=== PATIENT | female | born 1995 | race Caucasian/White ===

== ENCOUNTER 2018-07-17 20:56 | Emergency (ER) | payer MEDICAID ==
[2018-07-17] MEDS ORDERED: NS 1,000 ML IV ONE (21:14)
--- NOTE | 2018-07-17 21:14 | EDPHY ---
H & P Stated Complaint: sharp vaginal pain with nausea Time Seen by Provider: 07/17/18 21:10 HPI/ROS: HPI: This is a 23-year-old female who presents with Chief Complaint: Suprapubic and left lower quadrant pain Location: Suprapubic and left lower quadrant Quality: Sharp pain Duration: Started early this morning Signs and Symptoms: no fever, no nausea, no vomiting, no hematemesis, no blood in stool, no abdominal bloating, no diarrhea, no back pain, no urinary symptoms , no vaginal discharge, no indigestion, no chest pain, no shortness of breath Timing: Acute, constant Severity: Moderate Context: Patient is , 6 months , presents with complaints of sudden onset this morning around 3:30 a.m. Of suprapubic and left lower quadrant pain that was nonradiating in nature. Pain was sharp and intense. It woke her up from her sleep. Patient then reports approximately 1-2 hours later she started her menses. She is changing her tampon approximately every 4 hr. She is not breast-feeding. Does not take any control pills. She has a history of ovarian cyst. She recently moved from [facility] to the [facility] and does not have a primary care provider. She is eating and drinking without difficulty. She ate 3 meals today. Had a bowel movement today. Patient is and monogamous. No concern for STDs. Modifying Factors: She has tried no [id number] medications for pain Comment: ROS: A comprehensive 10 system review of systems is otherwise negative aside from elements mentioned in the history of present illness. MEDICAL/SURGICAL/SOCIAL HISTORY: Medical history: Generally healthy. Does not take any regular medications. Surgical history: Femur and clavicle surgery Social history: Nonsmoker. with 2 children. Family history noncontributory. CONSTITUTIONAL: Extremely polite and cooperative nontoxic-appearing young adult white female, overweight, awake and alert, no obvious distress HEENT: Atraumatic and normocephalic, PERRL, EOMI. Nares patent; no rhinorrhea; no nasal mucosal edema. Tympanic membranes clear. Oropharynx clear, no exudate and moist pink mucosa. Airway patent. No lymphadenopathy. No meningismus. Cardiovascular: Normal S1/S2, regular rate, regular rhythm, without murmur rub or gallop. PULMONARY/CHEST: Symmetrical and nontender. Clear to auscultation bilaterally. Good air movement. No accessory muscle usage. ABDOMEN: Soft, obesely rounded, nondistended, mild suprapubic and left lower quadrant tenderness, no rebound, no guarding, no peritoneal signs, no masses or organomegaly. No CVAT. EXTREMITIES: 2/2 pulses, strength 5/5, no deformities, no clubbing, no cyanosis or edema. NEUROLOGICAL: no focal neuro deficits. GCS 15. SKIN: Warm and dry, no erythema. no rash. Good capillary refill. Source: Patient Exam Limitations: No limitations - Personal History LMP (Females 10-55): Now Current Tetanus/Diphtheria Vaccine: Yes Current Tetanus Diphtheria and Acellular Pertussis (TDAP): Yes - Medical/Surgical History Hx Asthma: No Hx Chronic Respiratory Disease: No Hx Diabetes: No Hx Cardiac Disease: No Hx Renal Disease: No Hx Cirrhosis: No Hx Alcoholism: No Hx HIV/AIDS: No Hx Splenectomy or Spleen Trauma: No Other PMH: femur and clavicle surgery - Social History Smoking Status: Never smoked Constitutional: Initial Vital Signs Temperature (C) 37.0 C 07/17/18 20:57 Heart Rate 90 07/17/18 20:57 Respiratory Rate 16 07/17/18 20:57 Blood Pressure 119/70 07/17/18 20:57 O2 Sat (%) 96 07/17/18 20:57 O2 Delivery Mode Room Air Allergies/Adverse Reactions: No Known Allergies Allergy (Unverified 07/17/18 21:00) Home Medications: Medication Instructions Recorded NK [No Known Home Meds] 07/17/18 Medical Decision Making - Diagnostics Imaging Results: Imaging Impressions Pelvic/Renal Ultrasound 07/17/18 21:14 Impression: 1. Uterus didelphys. 2. There is a simple-appearing 2.5 cm right ovarian cyst, with no evidence of torsion or free fluid. Findings were discussed with Emani Estrella PA-C at 22:28, on 07/17/2018. . ED Course/Re-evaluation: Vital signs reviewed and stable upon arrival. No systemic signs. Patient given 1 L normal saline and IV Toradol Labs, urinalysis, pelvic ultrasound ordered. Suspect ovarian cyst rupture. 2148: Labs reviewed. No signs of leukocytosis/anemia/platelet dysfunction/CHING/ electrolyte imbalance. 5: Called by Dr. Rich who advised that pelvic ultrasound shows Uterus didelphys. 2. There is a simple-appearing 2.5 cm right ovarian cyst, with no evidence of torsion or free fluid. 2248: Reassessed patient who reports relief of symptoms. Patient will be referred to primary care provider and OBGYN. This patient was seen under the supervision of my secondary supervising physician. I evaluated care for this patient independently. Discussed this patient with Dr. Antonio. Differential Diagnosis: Abdominal pain in a female including but not limited to ovarian cyst, pelvic inflammatory disease, ovarian torsion, urinary tract infection, and appendicitis. - Data Points Laboratory Results: Laboratory Results 07/17/18 21:20 07/17/18 21:20 07/17/18 07/17/18 07/17/18 21:20 21:20 21:20 WBC 13.68 10^3/uL H 10^3/uL (3.80-9.50) RBC 4.72 10^6/uL 10^6/uL (4.18-5.33) Hgb 14.0 g/dL g/dL (12.6-16.3) Hct 40.1 % % (38.0-47.0) MCV 85.0 fL fL (81.5-99.8) MCH 29.7 pg pg (27.9-34.1) MCHC 34.9 g/dL g/dL (32.4-36.7) RDW 13.0 % % (11.5-15.2) Plt Count 281 10^3/uL 10^3/uL (150-400) MPV 10.2 fL fL (8.7-11.7) Neut % (Auto) 59.9 % % (39.3-74.2) Lymph % (Auto) 29.2 % % (15.0-45.0) [place] % (Auto) 6.7 % % (4.5-13.0) Eos % (Auto) 3.3 % % (0.6-7.6) Baso % (Auto) 0.6 % % (0.3-1.7) Nucleat RBC Rel Count 0.0 % % (0.0-0.2) Absolute Neuts (auto) 8.19 10^3/uL H 10^3/uL (1.70-6.50) Absolute Lymphs (auto) 4.00 10^3/uL H 10^3/uL (1.00-3.00) Absolute Monos (auto) 0.92 10^3/uL H 10^3/uL (0.30-0.80) Absolute Eos (auto) 0.45 10^3/uL H 10^3/uL (0.03-0.40) Absolute Basos (auto) 0.08 10^3/uL 10^3/uL (0.02-0.10) Absolute Nucleated RBC 0.00 10^3/uL 10^3/uL (0-0.01) Immature Gran % 0.3 % % (0.0-1.1) Immature Gran # 0.04 10^3/uL 10^3/uL (0.00-0.10) Sodium 139 mEq/L mEq/L (135-145) Potassium 4.1 mEq/L mEq/L (3.3-5.0) Chloride 105 mEq/L mEq/L (97-110) Carbon Dioxide 25 mEq/l mEq/l (22-31) Anion Gap 9 mEq/L mEq/L (8-16) BUN 15 mg/dL mg/dL (7-23) Creatinine 0.7 mg/dL mg/dL (0.6-1.0) Estimated GFR > 60 Glucose 88 mg/dL mg/dL (70-100) Calcium 9.7 mg/dL mg/dL (8.5-10.4) Beta HCG, Qual NEGATIVE Medications Given: Discontinued Medications Sodium Chloride (Ns) 1,000 mls @ 0 mls/hr IV ONCE ONE; Wide Open PRN Reason: Protocol Stop: 07/17/18 21:15 Last Admin: 07/17/18 21:44 Dose: 1,000 mls Ketorolac Tromethamine (Toradol) 30 mg IVP EDNOW ONE Stop: 07/17/18 21:16 Last Admin: 07/17/18 21:45 Dose: 30 mg Departure - Departure Disposition: Home, Routine, Self-Care Clinical Impression: Dysmenorrhea, Uterus didelphus Ovarian cyst Qualifiers: Laterality: right Qualified Code(s): N83.201 - Unspecified ovarian cyst, right side Condition: Good Instructions: Dysmenorrhea (ED), Ovarian Cyst (ED), Ruptured Ovarian Cyst (ED) Additional Instructions: Use a heating pad on your lower abdomen as needed for menstrual cramps. Consume a minimum of 8-10 glasses of water or electrolyte fluid replacement drinks that include Gatorade, Powerade, Pedialyte. Eat a bland diet for the next 48 hours and then slowly advance as tolerated. Follow up with [facility] in 1-2 weeks to discuss menstrual cramps and ovarian cyst treatment options including oral contraceptive versus IUD. Take Tylenol 650 mg every 4 hours and/or Ibuprofen 600 mg every 8 hours with food as needed for pain. Take Flexeril every 8 hr as needed for muscle cramps. Referrals: [facility],. [Clinic] - As per Instructions
[2018-07-17] MEDS ORDERED: KETOROLAC 30 MG/1 ML SDV IVP ONE (21:15)
[2018-07-17 21:33] LABS: PLATELET COUNT 281 10^3/uL (150-400)
[2018-07-17] MEDS ORDERED: CYCLOBENZAPRINE 10MG PREPACK#3 BTL TAKEHOME ONE (22:49)
[2018-07-17 23:08] VITALS: BP 96/55
== END 2018-07-17 23:08 | disposition home or self-care (01) ==
DX: N94.6 Dysmenorrhea, unspecified (principal); N83.201 Unspecified ovarian cyst, right side; Q51.2 Other doubling of uterus
CPT/HCPCS: 96374; J1885

== ENCOUNTER 2018-08-28 11:44 | Emergency (ER) | payer MEDICAID ==
--- NOTE | 2018-08-28 12:03 | EDPHY ---
General Time Seen by Provider: 08/28/18 11:58 Narrative: CHIEF COMPLAINT: , vaginal bleeding HISTORY OF PRESENT ILLNESS: Patient presents by private vehicle with her spouse with complaints of vaginal bleeding and . Patient reports positive , 1st trimester with a last menstrual. I have approximately July 12. She states that earlier today as she noted some blood on her toilet paper after using the restroom. She has had no pain, abdominal or pelvic. She had 1 episode of the bleeding with no further bleeding. She is not wearing a pad. She has no lightheaded is, dizziness or chest pain. She is with 1 spontaneous miscarriage. She has no complaints of pain anywhere at this time. She reports a negative blood type. She has received RhoGAM in the past. No other associated complaints or modifying factors. REVIEW OF SYSTEMS: 10 systems were reviewed and negative with the exception of the elements mentioned in the history of present illness. PCP: None SPECIALISTS: Dr. Ruiz, obstetrics PAST MEDICAL HISTORY: Denies any ongoing diagnoses. Previous orthopedic injuries and appendicitis. PAST SURGICAL HISTORY: Appendectomy 1st week of July this year. Previous clavicle femur pairs. SOCIAL HISTORY: Never smoker. Lives independently with her spouse. FAMILY HISTORY: Noncontributory EXAMINATION: Vitals: Triage VS reviewed General Appearance: Alert, no distress. Well appearing. Nontoxic. Head: normocephalic, atraumatic Eyes: Pupils equal and round, no conjunctival pallor or injection ENT, Mouth: Mucous membranes moist Respiratory: Lungs are clear to auscultation Cardiovascular: Regular rate and rhythm Gastrointestinal: Abdomen is soft and nontender. No tympany rigidity. No guarding. No CVA tenderness. Skin: Warm and dry, no rash Extremities: Nontender, no pedal edema Psychiatric: Mood and affect normal DIFFERENTIAL DIAGNOSES: Including but not limited to spontaneous , threatened , inevitable , subchorionic hemorrhage MDM: 12:00 p.m. First-trimester by last menstrual. With reports of vaginal bleeding today. She has no pain anywhere. She has no active bleeding. She does not take any anticoagulants and has no history of any bleeding disorders known to her. She is in no acute distress with benign abdominal examination. Laboratory studies and ultrasound pending. 1:30 p.m. Patient is a negative and RhoGAM will be administered. Laboratory studies unremarkable. No acute blood-loss anemia. Ultrasound pending. 2:00 p.m. Notified by radiologist Dr. Mckeon. We discussed the findings of the ultrasound of the pelvis as documented. 2:05 p.m. Patient re-evaluated. We discussed the ultrasound findings. We discussed the possibilities including threatened miscarriage, demise or early with need for serial hcgs and repeat ultrasound. I discussed that is difficult to determine at this point, and that she will need to follow up with her OB physician in 48-72 hr to recheck her HCG level. She will also need ultrasound in 2 weeks. We discussed RhoGAM administration and discharged home with ED precautions for worsening bleeding, greater than 1 pad per hour, pelvic cramping , lightheadedness or dizziness. She is reasonably upset but comfortable this plan and discharged in stable condition. SUPERVISION: Patient was independently examined, but I discussed the case with my secondary supervising physician Dr. Moseley CONSULTATION: None - Diagnostics Imaging Results: Imaging Impressions Obstetrics Ultrasound 08/28/18 12:13 Impression: No pole is identified with a presumed gestational sac in the right-sided uterus. Continued follow-up is recommended including correlation with beta hCG measurements. Results called and discussed with Octavio WILSON on 08/28/2018 at 14:03. - History Smoking Status: Never smoked - Objective Vital Signs: Initial Vital Signs Temperature (C) 98.1 F 08/28/18 11:45 Heart Rate 122 H 08/28/18 11:45 Respiratory Rate 18 08/28/18 11:45 Blood Pressure 111/77 08/28/18 11:45 O2 Sat (%) 95 08/28/18 11:45 O2 Delivery Mode Room Air Allergies/Adverse Reactions: No Known Allergies Allergy (Unverified 08/28/18 11:49) Home Medications: Medication Instructions Recorded NK [No Known Home Meds] 07/17/18 Laboratory Results: Laboratory Results 08/28/18 13:10 08/28/18 13:10 08/28/18 08/28/18 08/28/18 13:10 13:10 13:10 WBC 11.97 10^3/uL H 10^3/uL (3.80-9.50) RBC 4.43 10^6/uL 10^6/uL (4.18-5.33) Hgb 13.2 g/dL g/dL (12.6-16.3) Hct 38.4 % % (38.0-47.0) MCV 86.7 fL fL (81.5-99.8) MCH 29.8 pg pg (27.9-34.1) MCHC 34.4 g/dL g/dL (32.4-36.7) RDW 12.8 % % (11.5-15.2) Plt Count 254 10^3/uL 10^3/uL (150-400) MPV 9.7 fL fL (8.7-11.7) Neut % (Auto) 61.6 % % (39.3-74.2) Lymph % (Auto) 24.2 % % (15.0-45.0) [place] % (Auto) 7.9 % % (4.5-13.0) Eos % (Auto) 4.9 % % (0.6-7.6) Baso % (Auto) 0.8 % % (0.3-1.7) Nucleat RBC Rel Count 0.0 % % (0.0-0.2) Absolute Neuts (auto) 7.37 10^3/uL H 10^3/uL (1.70-6.50) Absolute Lymphs (auto) 2.90 10^3/uL 10^3/uL (1.00-3.00) Absolute Monos (auto) 0.94 10^3/uL H 10^3/uL (0.30-0.80) Absolute Eos (auto) 0.59 10^3/uL H 10^3/uL (0.03-0.40) Absolute Basos (auto) 0.10 10^3/uL 10^3/uL (0.02-0.10) Absolute Nucleated RBC 0.00 10^3/uL 10^3/uL (0-0.01) Immature Gran % 0.6 % % (0.0-1.1) Immature Gran # 0.07 10^3/uL 10^3/uL (0.00-0.10) Sodium 139 mEq/L mEq/L (135-145) Potassium 4.3 mEq/L mEq/L (3.3-5.0) Chloride 107 mEq/L mEq/L (97-110) Carbon Dioxide 25 mEq/l mEq/l (22-31) Anion Gap 7 mEq/L mEq/L (6-14) BUN 10 mg/dL mg/dL (7-23) Creatinine 0.6 mg/dL mg/dL (0.6-1.0) Estimated GFR > 60 Glucose 96 mg/dL mg/dL (70-100) Calcium 9.5 mg/dL mg/dL (8.5-10.4) Beta HCG, Quant Pending Patient ABO/Rh A NEGATIVE Antibody Screen NEGATIVE Bld Prod Order Rhogam READY Departure - Departure Disposition: Home, Routine, Self-Care Clinical Impression: Threatened miscarriage, Vaginal bleeding during Uterus didelphus in Qualifiers: Trimester: first trimester Qualified Code(s): O34.591 - Maternal care for other abnormalities of gravid uterus, first trimester Condition: Good Instructions: Rh (By injection), Threatened Miscarriage (ED) Additional Instructions: 1. Contact your established obstetric physician for repeat HCG level in 48-72 hours. You will need a repeat ultrasound in 2 weeks with her as well. 2. Return to this emergency department for bleeding heavier than 1 pad per hour , severe pain, lightheadedness, dizziness or chest pain 3. Pelvic rest until seen and cleared by OB physician Referrals: Ema Ruiz MD [Medical Doctor] - As per Instructions (48-72 hours for repeat HCG level) Physician,Emergency DeptMD [Medical Doctor] - As per Instructions (As instructed)
[2018-08-28 13:24] LABS: PLATELET COUNT 254 10^3/uL (150-400)
[2018-08-28 14:36] VITALS: BP 132/85
== END 2018-08-28 14:33 | disposition home or self-care (01) ==
DX: O20.0 Threatened abortion (principal); O34.591 Maternal care for other abnormalities of gravid uterus, first trimester

== ENCOUNTER → 2018-10-20 | Outpatient (CLI) | payer MEDICAID | LOC: FIMAGING 14:15 | PROVIDERS: ATTEND Obstetrics & Gynecology | DX: O09.521 Supervision of elderly multigravida, first trimester (principal); O34.01 Maternal care for unspecified congenital malformation of uterus, first trimester; Z3A.12 12 weeks gestation of pregnancy ==

== ENCOUNTER → 2018-11-14 | Outpatient (CLI) | payer MEDICAID | LOC: FIMAGING 08:52 | PROVIDERS: ATTEND Obstetrics & Gynecology | DX: O09.212 Supervision of pregnancy with history of pre-term labor, second trimester (principal); Q51.9 Congenital malformation of uterus and cervix, unspecified; Z3A.16 16 weeks gestation of pregnancy ==

== ENCOUNTER → 2018-12-12 | Outpatient (CLI) | payer MEDICAID | LOC: FIMAGING 08:19 | PROVIDERS: ATTEND Obstetrics & Gynecology | DX: O34.02 Maternal care for unspecified congenital malformation of uterus, second trimester (principal); Z3A.20 20 weeks gestation of pregnancy ==

== ENCOUNTER → 2018-12-26 | Outpatient (CLI) | payer MEDICAID | LOC: FIMAGING 13:50 | PROVIDERS: ATTEND Obstetrics & Gynecology | DX: O09.212 Supervision of pregnancy with history of pre-term labor, second trimester (principal); Q51.20 Other doubling of uterus, unspecified; Z3A.22 22 weeks gestation of pregnancy ==

== ENCOUNTER → 2019-01-02 | Outpatient (CLI) | payer MEDICAID | LOC: FIMAGING 11:54 | PROVIDERS: ATTEND Obstetrics & Gynecology | DX: O09.212 Supervision of pregnancy with history of pre-term labor, second trimester (principal); O34.02 Maternal care for unspecified congenital malformation of uterus, second trimester; O35.1XX0 Maternal care for (suspected) chromosomal abnormality in fetus, not applicable or unspecified; O34.219 Maternal care for unspecified type scar from previous cesarean delivery; Q51.10 Doubling of uterus with doubling of cervix and vagina without obstruction; Z3A.23 23 weeks gestation of pregnancy ==

== ENCOUNTER → 2019-01-17 | Outpatient (CLI) | payer MEDICAID | LOC: FIMAGING 13:43 | PROVIDERS: ATTEND Obstetrics & Gynecology | DX: O09.213 Supervision of pregnancy with history of pre-term labor, third trimester (principal); O34.211 Maternal care for low transverse scar from previous cesarean delivery; Z3A.25 25 weeks gestation of pregnancy ==